=== PATIENT | female | born 1980 | race Caucasian/White ===

== ENCOUNTER 2017-08-23 15:24 | Inpatient (IN) | payer MEDICARE, MEDICAID ==
[2017-08-23 16:35] LABS: AMPHETAMINES LEVEL URINE NEGATIVE (NEGATIVE); BARBITURATES URINE NEGATIVE (NEGATIVE); BENZODIAZEPINES URINE NEGATIVE (NEGATIVE); CANNABINOIDS URINE NEGATIVE (NEGATIVE); COCAINE METABOLITE URINE NEGATIVE (NEGATIVE); METHADONE URINE NEGATIVE (NEGATIVE); OPIATES URINE NEGATIVE (NEGATIVE); PHENCYCLIDINE URINE NEGATIVE (NEGATIVE)
[2017-08-23 16:43] LABS: HEMATOCRIT 41.1 % (36.0-47.0); HEMOGLOBIN 13.6 g/dl (12.0-16.0); MEAN CORPUSCULAR HEMOGLOBIN 29.4 pg (27.0-33.0); MEAN CORPUSCULAR HGB CONC 33.1 g/dl (32.0-36.5); PLATELET COUNT, AUTOMATED 332 10^3/uL (150-450); RED BLOOD COUNT 4.62 10^6/uL (4.00-5.40); RED CELL DISTRIBUTION WIDTH 12.6 % (11.5-14.5); WHITE BLOOD COUNT 8.6 10^3/uL (4.0-10.0)
[2017-08-23] MEDS: OLANZapine 5 MG TAB PO ×2 (16:45→21:49)
[2017-08-23 17:06] LABS: ACETAMINOPHEN LEVEL < 2.0 UG/ML (10.0-30.0); ALBUMIN 4.1 GM/DL (3.2-5.2); ALBUMIN/GLOBULIN RATIO 1.03 (1.00-1.93); ALKALINE PHOSPHATASE 94 U/L (45-117); ALT/SGPT 32 U/L (12-78); ANION GAP 8 MEQ/L (8-16); AST/SGOT 27 U/L (7-37); BILIRUBIN,DIRECT 0.3 MG/DL (0.0-0.2); BILIRUBIN,TOTAL 1.4 MG/DL (0.2-1.0); BLOOD UREA NITROGEN 14 MG/DL (7-18); CALCIUM LEVEL 9.2 MG/DL (8.5-10.1); CARBON DIOXIDE LEVEL 27 MEQ/L (21-32); CHLORIDE LEVEL 103 MEQ/L (98-107); CREATININE FOR GFR 0.75 MG/DL (0.55-1.02); ETHYL ALCOHOL (ETHANOL) < 0.003 % (0.000-0.010); GLOMERULAR FILTRATION RATE > 60.0 (>60); GLUCOSE, FASTING 101 MG/DL (70-105); POTASSIUM SERUM 4.2 MEQ/L (3.5-5.1); SALICYLATE LEVEL < 1.7 MG/DL (5.0-30.0); SODIUM LEVEL 138 MEQ/L (136-145); TOTAL PROTEIN 8.1 GM/DL (6.4-8.2)
[2017-08-23] MEDS ORDERED: MAALOX 30 ML SUSP *UDC PO (19:00)
[2017-08-24] MEDS: risperiDONE 2 MG TAB PO (20:06)
[2017-08-24] MEDS: traZODone 50 MG TAB PO (20:06)
[2017-08-25 09:41] LABS: ALBUMIN 3.3 GM/DL (3.2-5.2); ALKALINE PHOSPHATASE 84 U/L (45-117); ALT/SGPT 19 U/L (12-78); AST/SGOT 14 U/L (7-37); BILIRUBIN,DIRECT 0.1 MG/DL (0.0-0.2); BILIRUBIN,TOTAL 0.5 MG/DL (0.2-1.0); TOTAL PROTEIN 6.6 GM/DL (6.4-8.2)
[2017-08-25] MEDS: ALBUTEROL 90 MCG/ACT 8GM HFA INHALER INH (17:13)
[2017-08-25] MEDS: MOM 30ML SUSPENSION UDC PO (17:28)
[2017-08-25] MEDS: traZODone 50 MG TAB PO (20:33)
[2017-08-25] MEDS: risperiDONE 2 MG TAB PO (21:01)
[2017-08-25] MEDS: ACETAMINOPHEN TAB 650MG DOSE (2X325MG) PO (22:37)
[2017-08-26] MEDS: SERTRALINE HCL 50 MG TAB PO (09:21)
[2017-08-26] MEDS: ALBUTEROL 90 MCG/ACT 8GM HFA INHALER INH (09:21)
[2017-08-26] MEDS: MOM 30ML SUSPENSION UDC PO (09:44)
[2017-08-26] MEDS: DOCUSATE SODIUM 100 MG CAP PO ×2 (12:17→20:03)
[2017-08-26] MEDS: risperiDONE 2 MG TAB PO (20:03)
[2017-08-26] MEDS: traZODone 50 MG TAB PO (20:03)
[2017-08-27] MEDS: SERTRALINE HCL 50 MG TAB PO (08:55)
[2017-08-27] MEDS: DOCUSATE SODIUM 100 MG CAP PO ×2 (08:55→20:05)
[2017-08-27] MEDS: PALIPERIDONE 3 MG ER TAB (INVEGA) PO ×2 (11:58→20:05)
[2017-08-27] MEDS: ACETAMINOPHEN TAB 650MG DOSE (2X325MG) PO (15:28)
[2017-08-27] MEDS: MOM 30ML SUSPENSION UDC PO (16:52)
[2017-08-27 17:03] LABS: BEDSIDE GLUCOSE 123 MG/DL (70-105)
[2017-08-27] MEDS: traZODone 50 MG TAB PO (20:06)
[2017-08-28] MEDS: DOCUSATE SODIUM 100 MG CAP PO ×2 (08:06→20:08)
[2017-08-28] MEDS: PALIPERIDONE 3 MG ER TAB (INVEGA) PO ×2 (08:06→20:07)
[2017-08-28] MEDS: SERTRALINE HCL 50 MG TAB PO (08:06)
[2017-08-28] MEDS: MOM 30ML SUSPENSION UDC PO (08:07)
[2017-08-28] MEDS: ALBUTEROL 90 MCG/ACT 8GM HFA INHALER INH (17:33)
[2017-08-28] MEDS: traZODone 50 MG TAB PO (20:07)
[2017-08-29] MEDS: DOCUSATE SODIUM 100 MG CAP PO (08:02)
[2017-08-29] MEDS: SERTRALINE HCL 25 MG TABLET PO (08:02)
[2017-08-29] MEDS: PALIPERIDONE 3 MG ER TAB (INVEGA) PO (08:02)
[2017-08-29] MEDS: ALBUTEROL 90 MCG/ACT 8GM HFA INHALER INH (08:04)
[2017-08-29] MEDS: MOM 30ML SUSPENSION UDC PO (09:34)
== END 2017-08-29 14:55 | disposition home or self-care (01) | DRG 885 ==
LOC: M ED 15:24 → M ED INP 18:49 → M PSY 20:47
DX: F20.0 Paranoid schizophrenia (principal); F71 Moderate intellectual disabilities; G47.33 Obstructive sleep apnea (adult) (pediatric); Z91.19 Patient's noncompliance with other medical treatment and regimen; Z88.8 Allergy status to other drugs, medicaments and biological substances; Z79.899 Other long term (current) drug therapy

== ENCOUNTER → 2018-07-29 | Outpatient (REF) | payer MEDICARE, MEDICAID ==
[~2018-07-29] MED LIST: /QUET10TA; ALBU17IN INH; ALBU17IN2 INH; ATIV1TAB10 PO; BENZ-52 PO; Buspar PO; CELE10TA PO; EFFE37.527; FLUT11IN INH; INVE6TAB3 PO; OLAN5TAB PO; PALI1TAB2 PO; PREVTAB2 PO; RISP1TAB42 PO; SERT25TA PO; STRA18CA PO; TRAZ-160 PO; VENTAER INH
== END ==
LOC: M LAB REF 13:15
PROVIDERS: ATTEND Internal Medicine Pulmonary Disease
DX: R91.8 Other nonspecific abnormal finding of lung field (principal)

== ENCOUNTER → 2018-09-14 | Outpatient (CLI) | payer MEDICAID, MEDICARE ==
[~2018-09-14] MED LIST changes: -/QUET10TA; +SERO1TAB; -SERT25TA PO; +SERT25TA85 PO
--- NOTE | 2018-09-17 13:30 | REP ---
Gallium 67 scintigraphy with SPECT: History: Abnormal lung field findings. Sarcoidosis. No comparison chest imaging. Technique: 10.6 mCi of gallium 67 citrate is administered. 5 1/2 hour, 24 hour, 48 hour, and 72 hour R imaging is acquired with whole body anterior and posterior images. In addition a SPECT 3-D acquisition is acquired and axial coronal and sagittal reformatted images are generated. Scintigraphic findings: There is mild lacrimal uptake bilaterally which is a normal distribution. A normal bowel hepatic and splenic uptake are seen. There is no evidence of increased uptake focally within the thorax on early or delayed scan images. SPECT images show no evidence of hilar or mediastinal or pulmonary parenchymal focal uptake. There is no evidence of salivary gland or other extrathoracic inflammatory focus. Impression: Negative gallium 67 scintigraphy. Electronically Signed by Gualberto Avalos MD 09/17/2018 10:22 P
== END ==
LOC: M RAD 08:37
PROVIDERS: ATTEND Internal Medicine Pulmonary Disease
DX: D86.0 Sarcoidosis of lung (principal); R91.8 Other nonspecific abnormal finding of lung field
CPT/HCPCS: 78803; 78804; A9556